=== PATIENT | female | born 1975 | race Caucasian/White ===

== ENCOUNTER 2017-02-17 21:30 | Emergency (ER) | payer OTHER ==
[~2017-02-17] VITALS: Ht 165.1 cm; Wt 106.6 kg
[~2017-02-17 21:30] MED LIST: AMBIEN 10MG TAB10 MG PO; EFFEXOR 37.5M37.5 MG PO; LEVOTHYROXIN0.075 M1 PO; LORTAB 5/3251 TAB PO; LORTAB 500 MG-71 TAB PO; PREVACID 30MG C30 M1 PO; PRILOSEC20 M1 PO; TECFIDERA240 MG PO; TOPAMAX100 MG PO; VITAMIN B12 OR; VITAMIN D1000 IU PO
--- NOTE | 2017-02-17 21:42 | Emergency Room Report ---
History of Present Illness Time Seen by [id number] Presenting Problem in Triage Pt arrived:Walked Presenting Problem:c/o dog bite to right thumb. 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 N Clinical Suspician of Infection? N Mental Status: 1 - Regular (Normal Baseline) Sepsis Risk:Low Sepsis Risk Have you (or family members/close friends) recently traveled outside the [place]? N If Yes, where/when: Have you had exposure to infectious disease within the past month? N TB? Other? Specify: Source patient, RN notes reviewed, family, old records Exam Limitations no limitations Comment dog bite rt thumb this pm - known dog Cardiac Chest Pain Chest pain indicative of cardiac No Timing/Duration this evening Severity moderate ALLERGIES Coded Allergies: Sulfa (Sulfonamide Antibiotics) (Intermediate, I-HIVES 07/09/16) oxycodone (Intermediate, SEVERE HEADACHE 07/09/16) red dye (Intermediate, NA-DIARRHEA 07/09/16) Home Medications Reported Medications OMEPRAZOLE MAGNESIUM (Prilosec 20MG) 20 MG PO DAILYP PRN STOMACH Dimethyl Fumarate (Tecfidera) 240 MG PO BID [VITAMIN B12] 2,000 UNITS OR DAILY CHOLECALCIFEROL (VITAMIN D3) (Vitamin D3) 2,000 IUNITS PO DAILY Levothyroxine Sodium (Levothyroxine 0.075MG) 0.075 MG PO DAILY Topiramate (Topamax) 50 MG PO DAILY Venlafaxine Hydrochloride (Effexor 37.5MG) 37.5 MG PO DAILY Zolpidem Tartrate (Ambien 10MG) 10 MG PO QHS History Medical History General CAD? No Angina: No [place]: No Hypertension? No Hyperlipidemia? Yes CHF? No DVT? No PE? No COPD? No Asthma? No Anemia? No GERD? No Gastric ulcers? No GI Bleed? No Hernia? No Thyroid Problems? No Hypothyroidism? No CVA? No Seizures? No Diabetes? No Renal Insuffiency? No End Stage Renal Disease? No UTI? No Stones? No BPH? No GB Disease: No Nephritic Syndrome? No Asplenia? No Hepatitis? No Sickle Cell Disease? No Arthritis? No Migraines? No Cataracts? No Glaucoma? No MRSA? No HIV? No TB? No Anxiety? No Depression? No Cancer? 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 Respiratory denies cough, denies shortness of breath, denies wheezing Cardiovascular denies chest pain, denies palpitations, denies syncope Gastrointestinal denies abdominal pain, denies diarrhea, denies vomiting Genitourinary denies: dysuria, frequency, hesitancy, hematuria. Musculoskeletal denies back pain, denies joint pain, denies neck pain Skin see HPI, denies rash, other Psychiatric/Neurological denies headache, denies seizure Physical Exam Vital Signs Vital Signs Date Time Temp Pulse Resp B/P Pulse O2 O2 Flow FiO2 Ox Delivery Rate 02/17 2133 98.6 89 18 129/74 96 - WBC >12,000 or <4,000 or 10% bands? 2 or more SIRS Criteria Met? B/P:129/74 MAP:92 Creatinine >2.0? UA output<0.5ml/kg/hr for 2 hrs? Platelet count >100,000? Lactate >2.0mmol/1? INR >1.2 or PTT > than 60 sec? Evidence of Organ Dysfunction? Provider documented clinical suspician of infection? N Sepsis Criteria Count: 0 Sepsis Risk: Low Sepsis Risk General Appearance no apparent distress Eye Exam - bilateral eye PERRL, bilateral eye EOMI Ear, Nose, Throat normal ENT inspection Neck supple Respiratory Status No: respiratory distress. 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 No Results/Orders Current Medication Orders Sig/Daphne Start time Last Medication Dose Route Stop Time Status Admin Lidocaine HCl 0 .STK-MED ONE 02/17 2145 DC .ROUTE Procedures Laceration/Wound Repair Laceration/Wound Repair Risks/benefits discussed with pt/guardian? Yes Tetanus status up to date Wound Location thumb Wound Length (cm) 1 Wound's Depth, Shape sucutaneous tissue Wound Explored no FB identified Risk of retained FB explained to pt/guardian? Yes Irrigated w/ Saline (ccs) 0 Wound Prep Hibiclens, Saline Anesthesia 1% Lidocaine, Digital block Volume Anesthetic (ccs) 4 Wound Debrided none Wound Repaired With sutures Suture Size/Type 4:0, Ethilon Layer Closure No Total Number Sutures 6 Sterile Dressing Applied Yes Splint Applied No Sling Applied No Departure Departure Time of Disposition 2146 Disposition DC Home or Self Care(routine) Clinical Impression Primary Impression: Dog bite Qualifiers: Encounter type: initial encounter Qualified Code: W54.0XXA - Bitten by dog, initial encounter Secondary Impressions: Laceration Condition STABLE Referrals Mac Neumann MD (Family) Patient Instructions DI for Laceration Repair Additional Instructions suture out 10 days and use meds and recheck if needed Discharge Counseling Counseled pt/family regarding diagnosis, test results, medications/RX, follow up needs Prescriptions Current Visit Scripts Amoxicillin/Potassium Clav (Augmentin 875-125 Tablet) 1 EACH PO BID #14 TAB ED Critical Care Critical Care No at 2211
--- NOTE | 2017-02-17 21:42 | Emergency Room Report ---
History of Present Illness Time Seen by [id number] Presenting Problem in Triage Pt arrived:Walked Presenting Problem:c/o dog bite to right thumb. 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 N Clinical Suspician of Infection? N Mental Status: 1 - Regular (Normal Baseline) Sepsis Risk:Low Sepsis Risk Have you (or family members/close friends) recently traveled outside the [place]? N If Yes, where/when: Have you had exposure to infectious disease within the past month? N TB? Other? Specify: Source patient, RN notes reviewed, family, old records Exam Limitations no limitations Comment dog bite rt thumb this pm - known dog Cardiac Chest Pain Chest pain indicative of cardiac No Timing/Duration this evening Severity moderate ALLERGIES Coded Allergies: Sulfa (Sulfonamide Antibiotics) (Intermediate, I-HIVES 07/09/16) oxycodone (Intermediate, SEVERE HEADACHE 07/09/16) red dye (Intermediate, NA-DIARRHEA 07/09/16) Home Medications Reported Medications OMEPRAZOLE MAGNESIUM (Prilosec 20MG) 20 MG PO DAILYP PRN STOMACH Dimethyl Fumarate (Tecfidera) 240 MG PO BID [VITAMIN B12] 2,000 UNITS OR DAILY CHOLECALCIFEROL (VITAMIN D3) (Vitamin D3) 2,000 IUNITS PO DAILY Levothyroxine Sodium (Levothyroxine 0.075MG) 0.075 MG PO DAILY Topiramate (Topamax) 50 MG PO DAILY Venlafaxine Hydrochloride (Effexor 37.5MG) 37.5 MG PO DAILY Zolpidem Tartrate (Ambien 10MG) 10 MG PO QHS History Medical History General CAD? No Angina: No [place]: No Hypertension? No Hyperlipidemia? Yes CHF? No DVT? No PE? No COPD? No Asthma? No Anemia? No GERD? No Gastric ulcers? No GI Bleed? No Hernia? No Thyroid Problems? No Hypothyroidism? No CVA? No Seizures? No Diabetes? No Renal Insuffiency? No End Stage Renal Disease? No UTI? No Stones? No BPH? No GB Disease: No Nephritic Syndrome? No Asplenia? No Hepatitis? No Sickle Cell Disease? No Arthritis? No Migraines? No Cataracts? No Glaucoma? No MRSA? No HIV? No TB? No Anxiety? No Depression? No Cancer? 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 Respiratory denies cough, denies shortness of breath, denies wheezing Cardiovascular denies chest pain, denies palpitations, denies syncope Gastrointestinal denies abdominal pain, denies diarrhea, denies vomiting Genitourinary denies: dysuria, frequency, hesitancy, hematuria. Musculoskeletal denies back pain, denies joint pain, denies neck pain Skin see HPI, denies rash, other Psychiatric/Neurological denies headache, denies seizure Physical Exam Vital Signs Vital Signs Date Time Temp Pulse Resp B/P Pulse O2 O2 Flow FiO2 Ox Delivery Rate 02/17 2133 98.6 89 18 129/74 96 - WBC >12,000 or <4,000 or 10% bands? 2 or more SIRS Criteria Met? B/P:129/74 MAP:92 Creatinine >2.0? UA output<0.5ml/kg/hr for 2 hrs? Platelet count >100,000? Lactate >2.0mmol/1? INR >1.2 or PTT > than 60 sec? Evidence of Organ Dysfunction? Provider documented clinical suspician of infection? N Sepsis Criteria Count: 0 Sepsis Risk: Low Sepsis Risk General Appearance no apparent distress Eye Exam - bilateral eye PERRL, bilateral eye EOMI Ear, Nose, Throat normal ENT inspection Neck supple Respiratory Status No: respiratory distress. 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 No Results/Orders Current Medication Orders Sig/Daphne Start time Last Medication Dose Route Stop Time Status Admin Lidocaine HCl 0 .STK-MED ONE 02/17 2145 DC .ROUTE Procedures Laceration/Wound Repair Laceration/Wound Repair Risks/benefits discussed with pt/guardian? Yes Tetanus status up to date Wound Location thumb Wound Length (cm) 1 Wound's Depth, Shape sucutaneous tissue Wound Explored no FB identified Risk of retained FB explained to pt/guardian? Yes Irrigated w/ Saline (ccs) 0 Wound Prep Hibiclens, Saline Anesthesia 1% Lidocaine, Digital block Volume Anesthetic (ccs) 4 Wound Debrided none Wound Repaired With sutures Suture Size/Type 4:0, Ethilon Layer Closure No Total Number Sutures 6 Sterile Dressing Applied Yes Splint Applied No Sling Applied No Departure Departure Time of Disposition 2146 Disposition DC Home or Self Care(routine) Clinical Impression Primary Impression: Dog bite Qualifiers: Encounter type: initial encounter Qualified Code: W54.0XXA - Bitten by dog, initial encounter Secondary Impressions: Laceration Condition STABLE Referrals Mac Neumann MD (Family) Patient Instructions DI for Laceration Repair Additional Instructions suture out 10 days and use meds and recheck if needed Discharge Counseling Counseled pt/family regarding diagnosis, test results, medications/RX, follow up needs Prescriptions Current Visit Scripts Amoxicillin/Potassium Clav (Augmentin 875-125 Tablet) 1 EACH PO BID #14 TAB ED Critical Care Critical Care No at 2211
--- OUTSIDE RECORDS SUMMARY | 2017-02-17 21:49 | External Medical Summary Rpt ---
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 Name Role Phone LIVIER RANDHAWA MD, Unavailable Unavailable LIVIER RANDHAWA MD Purpose Continuity of Care Document - 06-01-2013 through 2016 Problems Code Diagnosis DOS Provider Status 883.0 883.0 OPEN 06-01-2013 Qasim WOUND OF [facility] E849.3 E849.3 ACC 06-01-2013 Qasim ON INDUSTR [facility] E917.9 E917.9 06-01-2013 Qasim STRUCK BY [facility] NEC V06.5 V06.5 06-01-2013 Qasim TETANUS-DIP [facility] [TD][DT] S16.1XXA STRAIN OF MUSCLE, FASCIA AND TENDON AT NECK LEVEL, INIT Allergies, Adverse Reactions, Alerts Type Drug Allergy Food Allergy Adverse Reaction to Substance Substance Reaction Severity SULFA (sulfonamide) I-HIVES Intermediate Oxycodone SEVERE HEADACHE Severe RED DYE (FOOD) NA-DIARRHEA, CHANGE Unknown IN STOOL Medications Na ND Rx Da Fi Fi Am Da Di Ph RX Ph St me C No te ll ll ou ys ag ar # ys at rm s nt no ma ic us Or Da si cy ia de te s n re d TE 49 09 0 No TA 28 -1 NU 10 8- Lo S- 29 20 ng DI 11 13 er PH 0 TH Ac ti TO ve XO ID , AD UL T 0 Vital Signs 06-01-2013 08:25 Name Value Interpretat Reference Comment ion Range BP 85 mm[Hg] Diastolic BP Systolic 118 mm[Hg] Heart 78 /min Rate/Pulse Encounters Encounter Start End Date Code Location Performer Type Date Emergency ROCIO RANDHAWA (ER) 3 08:09 3 08:32 [facility] LIVIER
--- OUTSIDE RECORDS SUMMARY | 2017-02-17 21:49 | External Medical Summary Rpt ---
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 Tar Roofer Name Role Phone LIVIER RANDHAWA MD, Unavailable Unavailable LIVIER RANDHAWA MD Purpose Continuity of Care Document - 06-01-2013 through 2016 Problems Code Diagnosis DOS Provider Status 883.0 883.0 OPEN 06-01-2013 Qasim WOUND OF [facility] E849.3 E849.3 ACC 06-01-2013 Qasim ON INDUSTR [facility] E917.9 E917.9 06-01-2013 Qasim STRUCK BY [facility] NEC V06.5 V06.5 06-01-2013 Qasim TETANUS-DIP [facility] [TD][DT] S16.1XXA STRAIN OF MUSCLE, FASCIA [...] ROCIO RANDHAWA (ER) 3 08:09 3 08:32 [facility] LIVIER
--- OUTSIDE RECORDS SUMMARY | 2017-02-17 21:50 | External Medical Summary Rpt ---
Author Author [employer] Organization [employer] Address Unknown Phone Unavailable Purpose Continuity of Care Document - through 2016
--- OUTSIDE RECORDS SUMMARY | 2017-02-17 21:50 | External Medical Summary Rpt ---
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 br\\.br \Multih ance adminis tered IV in the amount of 20 cc\.br\ \.br\No abnorma l enhance ment.\. 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 No evidenc e of MS plaque in the thoraci c\.br\s juvencio\. 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 MR cervica l spine December 17, 2014.\. br\\.br \Multih ance adminis tered IV in the amount of 20 cc\.br\ \.br\No abnorma l enhance ment.\. 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 br\C5-C 6 level broad-b ased discoge lia disease with associa kitty this margin\ .br\spu rring,\ .br\mos t promine nt in the left paracen tral locatio n with mild indenta tion of\.br\ the\.br \cord. Similar finding on prior.\ .br\Mil d anterol isthesi s of C3 on C4 again noted.\ .br\\.b r\IMPRE SSION:\ .br\No evidenc e of MS plaque involvi ng the cervica l spinal cord.\. br\Mult ilevel degener ative disc disease again noted which is most promine nt at\.br\ the\.br \C5-C6 level with indenta tion of the cord.\. 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 br\Cere bellar tonsils within normal limits in positio n. Expecte d signal void\.b r\seen\ .br\in vertebr al, basilar , and interna l carotid arterie s.\.br\ \.br\Ar eas of signal alterat ion noted in the brain parench yma which are in a\.br\l ocation \.br\an d/or configu ration suggest govind of the reporte d clinica l diagnos is of\.br\ multipl e\.br\s clerosi s.\.br\ \.br\\. br\No abnorma l enhance ment.\. br\\.br \\.br\D iffusio n weighte d images show no acute finding s.\.br\ \.br\IM PRESSIO N:\.br\ Impress ion: No Acute Finding s. Finding s again consist ent with the clinica l\.br\d iagnosi s of multipl e scleros is. There has been little change. \.br\ MRI THORACIC SPINE W WO CONTRAST Observa Value Referen Units Interpr Notes Date tion ce etation Range MRI No No No No Apr 5 THORACI informa informa informa informa 2016 C SPINE tion in tion in tion in tion in 1:08 PM W WO source source source source CONTRAS data data data data T\.br\ 1:08 PM\.br\ HISTORY : 40 years Female R93.0-A bnormal finding s on diagnos tic imaging of\.br\ skull\. br\and head, not elsewhe re classif ied-ICD -10-CM. Multipl e scleros is.\.br \\.br\F INDINGS : MRI of the thoraci c spine was perform ed both before and after\. br\the\ .br\adm inistra tion of 17 mL of MultiHa nce gadolin ium intrave nous contras t. No\.br\ prior\. br\stud ies.\.b r\\.br\ The thoraci c vertebr al bodies are normal in height. No acute thoraci c\.br\c ompress ion fractur e is seen. Several benign vertebr al body hemangi omas\.b r\are\. br\iden tified within the T12 and L1 vertebr al bodies. \.br\\. br\The thoraci c spinal cord is normal in caliber and signal. Specifi ismael, no\.br\ demyeli nating plaques are identif ied within the thoraci c spinal cord at\.br\ this\.b r\time. No focal areas of abnorma l enhance ment are identif ied within the\.br \thorac ic\.br\ cord.\. br\\.br \At T7-T8, T8-T9, and T9-T10, mild discoge lia changes are identif ied on\.br\ sagitta l\.br\i mages, which mildly indent the ventral aspects of the thecal sac at these\. br\leve ls.\.br \\.br\T here are calcifi ed gallsto silvio within the gallbla dder.\. br\\.br \IMPRES AZALEA: No demyeli nating plaques within the thoraci c spinal cord at\.br\ this\.b r\time. \.br\\. br\Mild discoge lia changes of the thoraci c spine as describ ed above.\ .br\\.b r\Jazmin cystoli thiasis .\.br\ MRI CERVICAL SPINE W WO CONTRAST Observa Value Referen Units Interpr Notes Date tion ce etation Range MRI No No No No Apr 5 CERVICA informa informa informa informa 2016 L SPINE tion in tion in tion in tion in 1:07 PM W WO source source source source CONTRAS data data data data T\.br\ 1:07 PM\.br\ HISTORY : 40 years Female R93.0-A bnormal finding s on diagnos tic imaging of\.br\ skull\. br\and head, not elsewhe re classif ied-ICD -10-CM. Multipl e scleros is.\.br \\.br\F INDINGS : MRI of the cervica l spine was perform ed both before and after\. br\the\ .br\adm inistra tion of 17 mL of MultiHa nce gadolin ium intrave nous contras t. No\.br\ prior\. br\stud ies.\.b r\\.br\ The cervica l vertebr al bodies are normal in height. The cervica l spinal\ .br\cor d is\.br\ normal in caliber and signal. No demyeli nating plaques are identif ied\.br \within the\.br \cervic al cord. No focal areas of abnorma l enhance ment are identif ied\.br \within the\.br \cervic al cord. The C2-C3 interve rtebral disc space is normal. \.br\\. br\At C3-C4, there is a 2 mm anterio r slippag e of C3 on C4 on a degener ative\. br\basi s\.br\a s there are bilater al degener ative changes of the posteri or articul ar\.br\ facets at\.br\ C3-C4, which are severe on the right and moderat e on the left. Also at\.br\ C3-C4,\ .br\min imal diffuse discoge lia changes are identif ied, which minimal ly flatten \.br\th e\.br\v entral aspect of the thecal sac without evidenc e of cervica l cord or\.br\ nerve root\.b r\compr ession. \.br\\. br\The C4-C5 interve rtebral disc spaces normal. \.br\\. br\At C5-C6, mild diffuse discoge lia changes are identif ied, which appear\ .br\mor e\.br\f ocally promine nt in a left paracen tral locatio n, which mildly waylon s\.br\t he\.br\ ventral aspect of the thecal sac, slightl y greater in a left paracen tral\.b r\locat ion and minimal ly waylon s the left ventral aspect of the cervica l\.br\c ord.\.b r\\.br\ The C6-C7 and C7-T1 interve rtebral disc spaces are normal. \.br\\. br\IMPR ESSION: No demyeli nating plaques within the cervica l spinal cord at\.br\ this\.b r\time. \.br\\. br\2 mm anterio r slippag e of C3 on C4 on a degener ative basis.\ .br\\.b r\Mild diffuse discoge lia changes at C5-C6, which appear more focally \.br\pr ominent in\.br\ a left paracen tral locatio n, which minimal ly waylon s the left ventral \.br\as pect of\.br\ the cervica l cord.\. br\ MRI BRAIN W WO CONTRAST Observa Value Referen Units Interpr Notes Date tion ce etation Range Addendu No No No No Apr 5 m: The informa informa informa informa 2015 patient tion in tion in tion in tion in 12:33 's source source source source PM prior data data data data brain MRI from [facility] has just\.b r\been\ .br\mad e availab le for twylai son. The previou sly describ ed mild to moderat e\.br\a mount\. br\of abnorma l demyeli nating plaques within the cerebra l white matter have\.b r\sligh tly\.br \worsen ed in twylai son to prior outside brain MRI of 014.\.b r\MRI BRAIN W WO CONTRAS T\.br\ 12:33 PM\.br\ HISTORY : 40 years Female R93.0-A bnormal finding s on diagnos tic imaging of\.br\ skull\. br\and head, not elsewhe re classif ied-ICD -10-CM. \.br\\. br\FIND INGS: Brain MRI was perform ed both before and after the adminis tration \.br\of 17\.br\ mL of MultiHa nce gadolin ium intrave nous contras t. No prior studies .\.br\\ .br\The ventric ular system is within normal limits. A mild-to -modera te amount\ .br\of\ .br\pat chevy and spotty abnorma l increas ed signal is identif ied within the\.br \cerebr al\.br\ white matter, primari ly in a periven tricula r locatio n. Several of these\. br\whit e\.br\m atter lesions are identif ied perpend icular to the roof of the lateral \.br\ve ntricle s, having the appeara nce of Holly' s fingers . These finding s are\.br \most\. br\comp atible with demyeli nating process such as multipl e scleros is. A\.br\n onenhan cing\.b r\demye linatin g plaque is also identif ied involvi ng the lateral aspect of\.br\ the left\.b r\thala mus. No acute infarct or acute intracr anial bleed is seen. No\.br\ intracr anial\. br\tumo r is identif ied. No focal areas of abnorma l enhance ment are identif ied\.br \within the brain. No mass effect, midline shift, or extra-a xial fluid\. br\arthur ection\ .br\is seen. Normal flow void is identif ied in the carotid and vertebr obasila r\.br\a rterial systems . There is minimal mucosal thicken ing of the left\.b r\maxil ronnie\.b r\sinus .\.br\\ .br\IMP RESSION : Mild to moderat e amount of abnorma l patchy and spotty\ .br\inc reased\ .br\sig nal within the cerebra l white matter, primari ly in a periven tricula r\.br\l ocation , in a pattern most compati ble with demyeli nating process such as\.br\ multipl e scleros is. No enhanci ng demyeli nating plaques identif ied. No\.br\ acute\. br\infa rct.\.b r\
--- OUTSIDE RECORDS SUMMARY | 2017-02-17 21:50 | External Medical Summary Rpt ---
Demographics Preferred Language Armenian Marital Status Unknown Roman Catholic Affiliation Unknown Race Unknown Ethnic Group Unknown Author Author , Organization [employer] Address Unknown Phone Unavailable Purpose Continuity of Care Document - through 2016 Immunization No patient found.
--- OUTSIDE RECORDS SUMMARY | 2017-02-17 21:50 | External Medical Summary Rpt ---
Demographics Preferred Language Belgian Marital Status Unknown Sikh Affiliation Unknown Race Unknown Ethnic Group Unknown Author Author , Organization [employer] Address Unknown Phone Unavailable Purpose Continuity of Care Document - through 2016 Immunization No patient found.
[2017-02-17] MEDS ORDERED: AUGMENTIN 875-1 EACH PO (22:11)
[2017-02-17 22:29] VITALS: BP 124/68
== END 2017-02-17 22:30 | disposition home or self-care (01) ==
LOC: ER 21:30
PROC: 0HQGXZZ Repair Left Hand Skin, External Approach (ICD-10-PCS; principal; 2017-02-17)
DX: S61.012A Laceration without foreign body of left thumb without damage to nail, initial encounter (principal); W54.0XXA Bitten by dog, initial encounter; Y92.009 Unspecified place in unspecified non-institutional (private) residence as the place of occurrence of the external cause; Z72.0 Tobacco use